=== PATIENT | male | born 1995 | race Caucasian/White ===

== ENCOUNTER → 2021-03-04 | Outpatient (CLI) | payer OTHER ==
[~2021-03-04] MED LIST: BENTYL; MOTRIN600 MG PO; Motrin,Rufen800 MG PO; NAPROSYN500 MG PO; NKHM PO; Orphenadrine C100 MG PO; PREVACID30 M1; VISTARIL25 M2 PO; VITAMIN D22000 UNIT PO
== END | disposition home or self-care (01) ==
LOC: COVID19 15:02
PROVIDERS: ATTEND Podiatrist Foot & Ankle Surgery
DX: U07.1 COVID-19 (principal)

== ENCOUNTER → 2022-08-16 | Outpatient (CLI) | payer OTHER | END | disposition home or self-care (01) | LOC: RAD 09:35 | PROVIDERS: ATTEND Family Medicine | DX: M25.462 Effusion, left knee (principal) ==

== ENCOUNTER → 2023-10-24 | Outpatient (CLI) | payer OTHER | END | disposition home or self-care (01) | LOC: CARD 14:30 | PROVIDERS: ATTEND Physician Assistant | DX: Z51.81 Encounter for therapeutic drug level monitoring (principal); R94.31 Abnormal electrocardiogram [ECG] [EKG] ==